=== PATIENT | male | born 1965 | race Caucasian/White ===

== ENCOUNTER → 2016-12-14 | Outpatient (CLI) | payer OTHER, BC ==
[~2016-12-14] MED LIST: *CPAPSUP; /PANT40TA; /SUCR1TA; ACET500C; ALLEGRA180 PO; AMOXIL875 PO; ANDROGEL TOPICAL; AUG875 PO; CELEBRE200 PO; CITRACAL; DARVON-N1 PO; DIFLUC100 PO; DOXYCYC100 PO; EFFEXORXL1 PO; FLEXERIL10 PO; INDERAL PO; LEXAPRO10 PO; LIDOCAINE PATCH; LUNESTA3 PO; MECLIZIN PO; MOTRIN800 PO; NAPROSY500 PO; PERC5TAB8; PREDNISO20 PO; SKELAXIN8 PO; TAPAZOLE PO; THERGRAN; VENL75TA2; VYTORIN10 PO; ZEBE5TAB; [UNRECOGNIZED DRUG - OTHER] TOPICAL
[2016-12-14 10:23] LABS: ANION GAP 7 MEQ/L (8-16); BLOOD UREA NITROGEN 19 MG/DL (7-18); CALCIUM LEVEL 8.3 MG/DL (8.5-10.1); CARBON DIOXIDE LEVEL 27 MEQ/L (21-32); CHLORIDE LEVEL 106 MEQ/L (98-107); CREATININE FOR GFR 1.12 MG/DL (0.70-1.30); GLOMERULAR FILTRATION RATE > 60.0 (>56); GLUCOSE, FASTING 107 MG/DL (70-105); POTASSIUM SERUM 4.1 MEQ/L (3.5-5.1); SODIUM LEVEL 140 MEQ/L (136-145)
--- NOTE | 2016-12-15 07:59 | ECGEPIP ---
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
== END ==
LOC: M LAB 09:28
PROVIDERS: ATTEND Orthopaedic Surgery
DX: Z01.818 Encounter for other preprocedural examination (principal); G56.03 Carpal tunnel syndrome, bilateral upper limbs; I15.9 Secondary hypertension, unspecified

== ENCOUNTER → 2017-07-26 | Outpatient (CLI) | payer BC, OTHER ==
[2017-07-26 13:28] LABS: ESTRADIOL 46.6 PG/ML (<39.8); LUTEINIZING HORMONE 6.2 mIU/mL (1.5-9.3); PROLACTIN 5.3 NG/ML (2.1-17.7)
[2017-07-26 13:29] LABS: FOLLICLE STIMULATING HORMONE 11.8 mIU/mL (1.4-18.1)
[2017-07-27 14:10] LABS: SEX HORMONE BINDING GLOBULIN 33.8 nmol/L (19.3-76.4)
== END ==
LOC: M SMT 09:44
PROVIDERS: ATTEND Nurse Practitioner Women's Health
DX: E29.1 Testicular hypofunction (principal)
CPT/HCPCS: 36415; 82670; 83001; 83002; 84146; 84402; 84403; G0103

== ENCOUNTER → 2017-10-31 | Outpatient (CLI) | payer BC, OTHER ==
[2017-10-31 13:39] LABS: ESTRADIOL < 19.0 PG/ML (<39.8)
[2017-11-02 00:06] LABS: TESTOSTERONE FREE (DIRECT) 21.3 pg/mL (7.2-24.0)
== END ==
LOC: M SMT 10:51
DX: N52.9 Male erectile dysfunction, unspecified (principal)

== ENCOUNTER 2018-01-31 11:40 | Emergency (ER) | payer OTHER ==
[2018-01-31] MEDS: NAPROXEN 250 MG TAB PO (13:33)
[2018-01-31] MEDS: METHOCARBAMOL 500 MG TAB PO (13:33)
== END 2018-01-31 13:43 | disposition home or self-care (01) ==
LOC: M ED 11:40
DX: S16.1XXA Strain of muscle, fascia and tendon at neck level, initial encounter (principal); V50.5XXA Driver of pick-up truck or van injured in collision with pedestrian or animal in traffic accident, initial encounter; Y92.410 Unspecified street and highway as the place of occurrence of the external cause; Y93.9 Activity, unspecified; Y99.9 Unspecified external cause status; Z79.890 Hormone replacement therapy
CPT/HCPCS: 99283

== ENCOUNTER → 2018-04-01 | Outpatient (CLI) | payer BC, OTHER ==
[2018-04-01 17:50] LABS: ESTRADIOL < 19.0 PG/ML (<39.8)
[2018-04-03 14:16] LABS: TESTOSTERONE FREE (DIRECT) 12.5 pg/mL (7.2-24.0)
== END ==
LOC: M SMT 11:35
DX: N52.9 Male erectile dysfunction, unspecified (principal); E29.1 Testicular hypofunction

== ENCOUNTER → 2018-05-07 | Outpatient (REF) | payer OTHER ==
[2018-05-07 20:20] LABS: FOLATE 14.4 NG/ML
== END ==
LOC: M LAB REF 17:50
DX: Z98.84 Bariatric surgery status (principal)

== ENCOUNTER → 2018-08-27 | Outpatient (CLI) | payer BC, OTHER ==
[~2018-08-27] MED LIST changes: +NAPR-885 PO; +ROBA500T PO; +SILD100T; +TEST30SO3
== END ==
LOC: M SMT 09:55
PROVIDERS: ATTEND Urology
DX: E29.1 Testicular hypofunction (principal)
CPT/HCPCS: 36415; 84403; G0103

== ENCOUNTER → 2018-11-03 | Outpatient (CLI) | payer BC, OTHER ==
[~2018-11-03] MED LIST changes: -/PANT40TA; -/SUCR1TA; +PROT1TAB2; +SUCR1TAB56
[2018-11-03 13:32] LABS: HEMATOCRIT 51.1 % (42.0-52.0); HEMOGLOBIN 17.1 g/dl (13.5-17.5)
== END ==
LOC: M SMT 08:18
PROVIDERS: ATTEND Urology
DX: N52.9 Male erectile dysfunction, unspecified (principal)

== ENCOUNTER → 2018-12-31 | Outpatient (CLI) | payer OTHER ==
[2018-12-31 13:13] LABS: HEMATOCRIT 49.6 % (42.0-52.0); HEMOGLOBIN 16.7 g/dl (13.5-17.5)
[2019-01-01 14:14] LABS: TESTOSTERONE FREE (DIRECT) 25.8 pg/mL (7.2-24.0)
== END ==
LOC: M SMT 09:44
PROVIDERS: ATTEND Nurse Practitioner Family
DX: E29.1 Testicular hypofunction (principal)

== ENCOUNTER → 2019-03-23 | Outpatient (CLI) | payer OTHER ==
[2019-03-23 13:23] LABS: HEMATOCRIT 45.9 % (42.0-52.0); HEMOGLOBIN 15.7 g/dl (13.5-17.5)
[2019-03-25 00:07] LABS: TESTOSTERONE FREE (DIRECT) 11.2 pg/mL (7.2-24.0)
== END ==
LOC: M SMT 10:59
PROVIDERS: ATTEND Nurse Practitioner Family
DX: E29.1 Testicular hypofunction (principal)
CPT/HCPCS: 36415; 84402; 84403; 85014; 85018; G0103

== ENCOUNTER → 2019-05-07 | Outpatient (CLI) | payer OTHER ==
[2019-05-07 09:54] LABS: HEMATOCRIT 48.8 % (42.0-52.0); HEMOGLOBIN 16.2 g/dl (13.5-17.5)
[2019-05-09 00:06] LABS: TESTOSTERONE FREE (DIRECT) 28.1 pg/mL (7.2-24.0)
== END ==
LOC: M SMT 08:50
PROVIDERS: ATTEND Nurse Practitioner Family
DX: E29.1 Testicular hypofunction (principal)

== ENCOUNTER → 2019-07-10 | Outpatient (REF) | payer OTHER | LOC: M LAB REF 16:17 | PROVIDERS: ATTEND Physician Assistant | DX: J02.9 Acute pharyngitis, unspecified (principal) ==

== ENCOUNTER → 2019-07-21 | Outpatient (CLI) | payer BC, OTHER ==
[2019-07-21 14:49] LABS: HEMATOCRIT 50.7 % (42.0-52.0); HEMOGLOBIN 16.4 g/dl (13.5-17.5)
[2019-07-23 00:06] LABS: TESTOSTERONE FREE (DIRECT) 12.3 pg/mL (7.2-24.0)
== END ==
LOC: M PLALAB 11:34
PROVIDERS: ATTEND Nurse Practitioner Family
DX: E29.1 Testicular hypofunction (principal)

== ENCOUNTER → 2019-09-28 | Outpatient (CLI) | payer OTHER, BC ==
[2019-09-28 12:02] LABS: HEMATOCRIT 48.8 % (42.0-52.0); HEMOGLOBIN 15.6 g/dl (13.5-17.5)
[2019-09-30 00:06] LABS: TESTOSTERONE FREE (DIRECT) 9.4 pg/mL (7.2-24.0)
== END ==
LOC: M PLALAB 09:43
PROVIDERS: ATTEND Nurse Practitioner Family
DX: E29.1 Testicular hypofunction (principal)

== ENCOUNTER 2019-12-15 10:54 | Emergency (ER) | payer OTHER, BC ==
[~2019-12-15] VITALS: Ht 175.3 cm; Wt 127.9 kg
[2019-12-15] MEDS ORDERED: ibuprofen 600 (11:01)
[2019-12-15] MEDS ORDERED: LIDOCAINE 5% (LIDODERM) PATCH TD ONE (11:45)
[2019-12-15] MEDS ORDERED: ACETAMINOPHEN 500 MG TAB PO ONE (11:45)
[2019-12-15] MEDS ORDERED: KETOROLAC 30 MG/ML 1ML VIAL IM ONE (12:30)
[2019-12-15] MEDS ORDERED: CYCL-707 PO (13:13)
[2019-12-15] MEDS ORDERED: LIDO5DIS41 TOP (13:13)
[2019-12-15 13:19] VITALS: BP 138/82
--- NOTE | 2019-12-15 14:00 | REP ---
LUMBOSACRAL SPINE: Five views of the lumbosacral spine performed. There is no compression fracture. There is spondylolysis at L5 with anterior grade 1 spondylolisthesis of L5. There is moderate to moderately severe disc space narrowing at L5-S1 with subchondral sclerosis and vacuum. There is sclerosis at the facets of L5-S1. There is mild narrowing, spurring and subchondral sclerosis at T12-L1. Metallic clips are seen in the right upper quadrant. Posterior elements are otherwise intact. IMPRESSION: Spondylolysis at L5 with anterior grade 1 spondylolisthesis of L5. Moderate severe degenerative disc changes at L5-S1. Electronically Signed by Kirt Conteh MD 12/15/2019 03:22 P
[2019-12-15] MEDS ORDERED: **NOTE PATIENT COMMENT** MISC XX SCH (21:00)
== END 2019-12-15 13:22 | disposition home or self-care (01) ==
LOC: M ED 10:54
DX: S39.012A Strain of muscle, fascia and tendon of lower back, initial encounter (principal); M47.817 Spondylosis without myelopathy or radiculopathy, lumbosacral region; X50.0XXA Overexertion from strenuous movement or load, initial encounter; Y92.89 Other specified places as the place of occurrence of the external cause; Y93.89 Activity, other specified; Y99.0 Civilian activity done for income or pay; G47.30 Sleep apnea, unspecified; Z87.19 Personal history of other diseases of the digestive system; Z98.84 Bariatric surgery status
CPT/HCPCS: 36415; 72110; 80047; 96372; 99283; J1885

== ENCOUNTER → 2019-12-26 | Outpatient (CLI) | payer OTHER, BC ==
[~2019-12-26] MED LIST changes: +CYCL-707 PO; +LIDO5DIS41 TOP; +ibuprofen 600
== END ==
LOC: M LABSMTC 11:28
PROVIDERS: ATTEND Family Medicine
DX: Z11.59 Encounter for screening for other viral diseases (principal); Z20.828 Contact with and (suspected) exposure to other viral communicable diseases

== ENCOUNTER 2020-06-01 20:12 | Emergency (ER) | payer BC, OTHER ==
[~2020-06-01] VITALS: Ht 172.7 cm; Wt 127.8 kg
[2020-06-01] MEDS ORDERED: ACETAMINOPHEN 500 MG TAB PO ONE (22:00)
[2020-06-01] MEDS ORDERED: LIDOCAINE 5% (LIDODERM) PATCH TD ONE (22:00)
[2020-06-02] MEDS ORDERED: LIDO5DIS41 TOP (00:34)
[2020-06-02 01:03] VITALS: BP 142/90
[2020-06-02] MEDS ORDERED: **NOTE PATIENT COMMENT** MISC XX SCH (21:00)
--- NOTE | 2020-06-28 13:55 | REP ---
INDICATION: L flank pain/low back pain, r/o stone repeat dictation. Preliminary report is provided at the time of the exam by tito LAMBERT. COMPARISON: Comparison CT study of the abdomen August 25, 2008.. TECHNIQUE: Helical scanning is acquired in 4 mm axial images were reformatted. Coronal and sagittal MPR images were generated and reviewed. 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 Bowel gas pattern is unremarkable. The lung bases are essentially clear. No pleural effusion or upper abdominal ascites seen. There is moderate diffuse fatty infiltration of the liver with areas of fat sparing centrally. There are clips post cholecystectomy. The patient is status post gastric bypass. The spleen is unremarkable. No adrenal lesion is observed. The kidneys are morphologically intact. No retroperitoneal mass or adenopathy is seen. No abnormality is noted in the pancreas. Small and large bowel loops are normal in the abdomen and pelvis. No abdominal wall defect is seen. There are 1 or 2 dystrophic calcifications in the prostate. No urinary bladder calculus or renal calculus is observed. Seminal vesicles are unremarkable. On bone window settings, there is a grade 1 spondylolisthesis at L5-S1 due to bilateral pars defects at L5. The spondylolisthesis measures 6 mm today, 4 mm on the 2008 prior study. No acute bony abnormality is appreciated. IMPRESSION: 1. Five a moderate fatty infiltration of the liver. 2. Post cholecystectomy and gastric bypass procedure. 3. No urinary tract calculus. 4. Bilateral L5 spondylolysis with grade 1 L5-S1 spondylolisthesis. <Electronically signed by Waqar Ball > 06/28/20 [id number]
== END 2020-06-02 01:10 | disposition home or self-care (01) ==
LOC: M ED 20:12
DX: S39.012A Strain of muscle, fascia and tendon of lower back, initial encounter (principal); M48.061 Spinal stenosis, lumbar region without neurogenic claudication; M43.16 Spondylolisthesis, lumbar region; M47.817 Spondylosis without myelopathy or radiculopathy, lumbosacral region; X50.1XXA Overexertion from prolonged static or awkward postures, initial encounter; Y92.89 Other specified places as the place of occurrence of the external cause; K76.0 Fatty (change of) liver, not elsewhere classified; G47.33 Obstructive sleep apnea (adult) (pediatric); Z98.84 Bariatric surgery status; Z87.19 Personal history of other diseases of the digestive system

== ENCOUNTER → 2020-07-04 | Outpatient (REF) | payer OTHER ==
[2020-07-04 16:46] LABS: PERCENT SATURATION 86.1 % (19.7-50.0)
[2020-07-04 16:57] LABS: FOLATE 18.3 NG/ML; TOTAL 25(OH) VITAMIN D 42.6 NG/ML (30.0-100.0)
[2020-07-08 05:12] LABS: TESTOSTERONE FREE (DIRECT) 7.9 pg/mL (7.2-24.0)
== END ==
LOC: M LAB REF 16:22
PROVIDERS: ATTEND Internal Medicine
DX: Z98.84 Bariatric surgery status (principal)

== ENCOUNTER → 2020-10-06 | Outpatient (REF) | payer OTHER | LOC: M LAB REF 16:29 | PROVIDERS: ATTEND Internal Medicine | DX: E29.1 Testicular hypofunction (principal) ==

== ENCOUNTER → 2020-11-15 | Outpatient (CLI) | payer OTHER ==
--- NOTE | 2020-11-15 15:20 | REP ---
INDICATION: LUMBAR SPINE PAIN. Repeat dictation. Preliminary report is provided at the time of the exam by tito LAMBERT. COMPARISON: Comparison lumbar spine radiographs December 15, 2019. Comparison is made with images from CT study June 01, 2020.. TECHNIQUE: Sagittal and axial T1 and T2-weighted scans are acquired in the usual fashion with and without fat saturation. Sequences include spin echo, turbo spin-echo, and STIR imaging sequences. FINDINGS: Lumbar vertebral body heights are preserved. Bilateral L5 pars defects are again noted and there is a grade 1, 5 mm, L5-S1 spondylolisthesis. Degenerative disc disease is noted at L5-S1. There is mild left-sided neural foraminal narrowing at L5-S1. No disc protrusion is visible. There is mild facet hypertrophy at L5-S1. At L4-5, there is degenerative disc narrowing and desiccation. A left posterior focal disc protrusion is present at L4-5 indenting the left ventral margin of the thecal sac. this is mild. There is facet hypertrophy bilaterally. Canal size is normal. No foraminal encroachment is appreciated. At L3-4, there is mild diffuse disc bulging. No other finding. At L2-3 there is a small right posterior focal disc protrusion which extends a few mm cranial. This indents the right ventral margin of the thecal sac. Diffuse disc bulging is present at L2-3 as well contributing to borderline canal size. No foraminal narrowing is seen. At L1-L2, there is mild diffuse disc bulging. The tip of the conus medullaris is normal in position and appearance at L1. No extra vertebral abnormality is observed. IMPRESSION: Degenerative spondylosis changes. Stable grade 1 spondylolisthesis L5-S1 associated with bilateral L5 pars defects. Left paracentral disc protrusion at L4-5 and right paracentral disc protrusion at L2-3. <Electronically signed by Waqar Ball > 11/15/20 [id number]
== END ==
LOC: M RAD 09:42
PROVIDERS: ATTEND Orthopaedic Surgery
DX: M51.26 Other intervertebral disc displacement, lumbar region (principal); M51.36 Other intervertebral disc degeneration, lumbar region; M43.17 Spondylolisthesis, lumbosacral region

== ENCOUNTER → 2021-01-09 | Outpatient (REF) | payer OTHER | LOC: M LAB REF 16:20 | PROVIDERS: ATTEND Internal Medicine | DX: E29.1 Testicular hypofunction (principal) ==

== ENCOUNTER 2021-12-15 11:56 | Emergency (ER) | payer BC, OTHER ==
[~2021-12-15] VITALS: Ht 175.3 cm; Wt 116.6 kg
[2021-12-15 13:53] LABS: BASO # 0.1 10^3/uL (0.0-0.2); EOS % 0.3 % (0.0-3.0); HEMATOCRIT 48.8 % (42.0-52.0); HEMOGLOBIN 16.7 g/dl (13.5-17.5); LYMPH # 1.2 10^3/uL (1.5-5.0); LYMPH % 19.7 % (24.0-44.0); MEAN CORPUSCULAR HEMOGLOBIN 33.1 pg (27.0-33.0); MEAN CORPUSCULAR HGB CONC 34.2 g/dl (32.0-36.5); MEAN CORPUSCULAR VOLUME 96.6 fl (80.0-96.0); NEUTROPHILS # 3.8 10^3/uL (1.5-8.5); NEUTROPHILS % 62.7 % (36.0-66.0); PLATELET COUNT, AUTOMATED 248 10^3/uL (150-450); RED BLOOD COUNT 5.05 10^6/uL (4.30-6.10)
[2021-12-15 14:25] LABS: ALBUMIN 3.8 GM/DL (3.2-5.2); ALT/SGPT 87 U/L (12-78); BILIRUBIN,DIRECT 0.3 MG/DL (0.0-0.2); BILIRUBIN,TOTAL 0.8 MG/DL (0.2-1.0); BLOOD UREA NITROGEN 10 MG/DL (7-18); CALCIUM LEVEL 9.3 MG/DL (8.5-10.1); CARBON DIOXIDE LEVEL 27 MEQ/L (21-32); CHLORIDE LEVEL 105 MEQ/L (98-107); CREATININE FOR GFR 0.94 MG/DL (0.70-1.30); GLOMERULAR FILTRATION RATE > 60.0 (>56); GLUCOSE, FASTING 118 MG/DL (70-100); LIPASE 121 U/L (73-393); POTASSIUM SERUM 4.2 MEQ/L (3.5-5.1); SODIUM LEVEL 140 MEQ/L (136-145); TOTAL PROTEIN 7.6 GM/DL (6.4-8.2)
[2021-12-15] MEDS ORDERED: ISOVUE-370 76% 100ML VIAL As Ordered ONE (17:06)
[2021-12-15 17:41] LABS: FREE T4 0.83 NG/DL (0.76-1.46); MAGNESIUM LEVEL 2.1 MG/DL (1.8-2.4)
[2021-12-15] MEDS ORDERED: NS 1,000 ML IV ONE (19:20)
[2021-12-15 22:28] VITALS: BP 145/85
== END 2021-12-15 22:37 | disposition home or self-care (01) ==
LOC: M ED 11:56
DX: I95.1 Orthostatic hypotension (principal); R25.1 Tremor, unspecified; R05.9 Cough, unspecified; Z86.711 Personal history of pulmonary embolism; D50.9 Iron deficiency anemia, unspecified; G47.33 Obstructive sleep apnea (adult) (pediatric); Z98.84 Bariatric surgery status
CPT/HCPCS: 70450; 71275; 80048; 80076; 83690; 83735; 84439; 84443; 84484; 85025; 93005; 96360; 96361; 99285; Q9967

== ENCOUNTER → 2022-01-22 | Outpatient (REF) | payer BC, OTHER | LOC: M LAB REF 12:09 | PROVIDERS: ATTEND Internal Medicine | DX: E29.1 Testicular hypofunction (principal) ==

== ENCOUNTER → 2022-07-28 | Outpatient (CLI) | payer OTHER | LOC: M RAD 10:56 | DX: M51.16 Intervertebral disc disorders with radiculopathy, lumbar region (principal); M47.816 Spondylosis without myelopathy or radiculopathy, lumbar region ==

== ENCOUNTER → 2022-11-14 | Outpatient (REF) | LOC: M PLAIMG 10:21 | PROVIDERS: ATTEND Internal Medicine | DX: Z01.818 Encounter for other preprocedural examination (principal); Z11.52 Encounter for screening for COVID-19 ==

== ENCOUNTER 2023-08-28 06:02 | Emergency (ER) | payer OTHER, SELFPAY ==
[~2023-08-28] VITALS: Ht 175.3 cm; Wt 120.5 kg
[2023-08-28 10:00] VITALS: BP 146/81; TEMP 98.2; O2SAT 94
== END 2023-08-28 10:11 | disposition home or self-care (01) ==
LOC: M ED 06:02
DX: F43.0 Acute stress reaction (principal); F10.10 Alcohol abuse, uncomplicated

== ENCOUNTER → 2024-01-17 | Outpatient (REF) | payer BC, OTHER ==
[2024-01-17 13:45] LABS: PERCENT SATURATION 28.1 % (19.7-50.0)
[2024-01-17 13:46] LABS: FERRITIN 19.1 NG/ML (10.5-307.3)
[2024-01-17 13:47] LABS: TOTAL 25(OH) VITAMIN D 26.7 NG/ML (20.0-100.0)
[2024-01-17 13:48] LABS: FOLATE 12.7 NG/ML (>5.4)
== END ==
LOC: M LAB REF 12:55
PROVIDERS: ATTEND Internal Medicine
DX: Z98.84 Bariatric surgery status (principal); E29.1 Testicular hypofunction